=== PATIENT | female | born 1995 | race Caucasian/White ===

== ENCOUNTER 2022-08-14 11:58 | Outpatient (REF) | payer OTHER, SELFPAY ==
--- NOTE | ~2022-08-14 | US_ITS ---
EXAMINATION: US DIAGNOSTIC ULTRASOUND BREAST, RIGHT CLINICAL INFORMATION: 26-year-old with palpable area 1 x 1 cm at clinical exam 12:00 position right breast. No palpable concern noted by patient. No prior breast imaging. COMPARISON: None. TECHNIQUE: Ultrasound of the right breast is targeted to the upper breast using grayscale imaging and color Doppler without and with harmonics. FINDINGS: There is no focal suspicious finding. There is no cystic or solid mass, architectural abnormality, duct ectasia, or edema in the soft tissue planes. Results are discussed with the patient at time of visit. US/US breast RT limited IMPRESSION: Normal study. ASSESSMENT: BI-RADS 1: Negative RECOMMENDATION: -Patient should be managed based on the clinical impression. If there is still clinical palpable concern, further evaluation may be considered with surgical consult. Decision to proceed with biopsy should be based on clinical grounds and degree of clinical concern.
== END 2022-08-14 11:59 | disposition home or self-care (01) ==
LOC: HO.MAMMO 11:58
PROVIDERS: PCP Internal Medicine; Visit Provider Internal Medicine
DX: N63.12 Unspecified lump in the right breast, upper inner quadrant (principal)
CPT/HCPCS: 76642

== ENCOUNTER 2022-09-10 09:05 | Outpatient (REF) | payer OTHER, SELFPAY ==
--- NOTE | ~2022-09-10 | US_ITS ---
EXAMINATION: US DIAGNOSTIC ULTRASOUND BREAST, LEFT CLINICAL INFORMATION: 26-year-old with palpable area noted at routine clinical exam 2:00 position. No palpable concern noted by patient. No discharge. No family history breast cancer. COMPARISON: Contralateral right breast targeted ultrasound 08/14/2022. TECHNIQUE: Ultrasound left breast is targeted to the upper outer quadrant. Grayscale imaging and color Doppler are performed without and with harmonics. FINDINGS: There is no focal suspicious finding. There is no cystic or solid mass, architectural abnormality, duct ectasia, or edema in the soft tissue planes. Results are discussed with the patient at time of visit. US/US breast LT limited IMPRESSION: Normal study. ASSESSMENT: BI-RADS 1: Negative RECOMMENDATION: -Patient should be managed based on the clinical impression. -If there is still clinical concern, further evaluation may be considered with surgical consult.
== END 2022-09-10 09:06 | disposition home or self-care (01) ==
LOC: HO.MAMMO 09:05
PROVIDERS: Visit Provider Internal Medicine
DX: N63.21 Unspecified lump in the left breast, upper outer quadrant (principal)
CPT/HCPCS: 76642

== ENCOUNTER 2022-11-05 11:33 | Outpatient (REF) | payer OTHER, SELFPAY | END 2022-11-05 11:34 | disposition home or self-care (01) | LOC: HO.10HDL 11:33 | PROVIDERS: Visit Provider Internal Medicine | DX: N30.00 Acute cystitis without hematuria (principal); R30.0 Dysuria | CPT/HCPCS: 87086; 87088; 87186 ==

== ENCOUNTER 2025-05-29 19:31 | Emergency (ER) | payer OTHER, SELFPAY ==
[2025-05-29 19:47] VITALS: BP 98/51; PULSE 102; RESP 16; TEMP 36.6; O2SAT 98; BMI 23.6
--- NOTE | 2025-05-29 19:49 | ED_ITS ---
HPI - Abdominal Pain General Chief Complaint: Abdominal Pain Stated Complaint: Stomach Pain Time Seen by Provider: 05/29/25 21:42 Source: patient Mode of arrival: ambulatory Limitations: no limitations History of Present Illness ED Provider: Dr. Banks HPI narrative: This is a 29-year-old female history of Crohn's disease in the past. She has been on Humira in the past. However this was quite some time ago. She does not have a outpatient GI doctor currently. She has been complaining of increased generalized abdominal pain that is migratory in nature. Patient stated that she suspect this is a Crohn flare up. Denies any diarrhea. Denies any bloody bowel movement however does endorse some nausea. Patient has difficulty eating due to the pain. Related Data Previous Rx's ?Medication ?Instructions ?Recorded prednisone 50 mg tablet 50 mg PO DAILY 7 days #7 tab s 05/29/25 Allergies Allergy/AdvReac Type Severity Reaction Status Date / Time No Known Allergies Allergy Verified 05/29/25 19:49 Review of Systems Review of Systems Pertinent review of systems as mentioned in HPI. All other system otherwise negative. [facility] Past Medical History [facility] Narrative: Crohn's disease Social History Social History Advance Directives: No Advance Directives Information Provided: No Do you have a plan to hurt others: No Plan Physical Exam ED Exam Exam: General: Pleasant, no distress, interacting appropriately Head: Normacephalic, atraumatic ENT: oral mucosa moist, neck supple, no tracheal deviation Cardiovascular: regular rate, regular rhythm, no murmurs, rubbing, gallops Respiratory: CTAB, no wheeze, rales, rhonchi Gastrointestinal: Soft, epigastric abdominal tenderness on palpation no guarding Neurological: Awake and alert, no facial droop noted Skin: Warm and dry Psychiatric: Appropriate mood and thoughts Vital Signs: Vital Signs - 24 hr 05/29/25 19:47 Temperature 97.9 F Pulse Rate 102 H Respiratory Rate 16 Blood Pressure 98/51 L Pulse Oximetry 98 Oxygen Delivery Method Room Air BMI result Body Mass Index 23.6 Course Course Course Narrative: Debbie Roche [employer] 05/29/251949 This is rapid medical exam. Deferred additional HPI, ROS, PE to primary provider. 29 yo female with history of crohns (has not seen her GI and been off humira 6yrs) here with abdominal pain, weight loss, feels like she is having a crohns flare. LMP 3 weeks ago. Will obtain labs, UA VSS Medical Decision Making Medical Decision Making MDM Narrative: 29-year-old female history of Crohn's disease presented hospital today for evaluation of generalized abdominal pain. We will plan to give patient some IV Solu-Medrol. IV fluid be given to the patient. She is tachycardic on vital sign. The patient does not appear to be acutely ill on presentation. We will plan to give patient some IV Pepcid. We will plan to also give patient a L IV fluid at this time. I suspect there is a component of dehydration due to her inability to have good p.o. intake. Basic abdominal lab work was obtained on the patient. Unfortunately nursing staff had difficulty time obtain any IV access on patient. Patient will like to defer IV medication and labs at this time. She does feel comfortable with p.o. medication and discharged with a prescription with the p.o. medication. Patient will be given a dose of prednisone here for anticipated Crohn's flare- up. We will plan to discharge patient with a week course of prednisone burst. Referral to Gastroenterology Clinic will be provided the patient. Patient will be discharged home. Differential Diagnosis Differential Diagnoses: The differential diagnosis associated with the presentation includes Crohn's flare up, gastritis, gastroenteritis, colitis Lab Data MDM Lab Attestation statement: I reviewed the patient's lab results. 05/29/25 22:11 05/29/25 22:11 Labs: Lab Results 05/29/25 Range/Units 22:11 WBC 8.2 (4.8-10.8) X10*3/uL RBC 4.02 L (4.20-5.50) X10*6/uL Hgb 11.0 L (12.0-16.0) g/dl Hct 34.5 L (37.0-47.0) % MCV 85.8 (80.0-98.0) fL MCH 27.4 (27.0-33.0) pg MCHC 31.9 (31.0-35.0) g/dl RDW 13.2 (11.0-16.0) % Plt Count 258 (160-400) X10*3/uL MPV 12.0 (9.4-12.3) fL Immature Gran % (Auto) 0.2 (0.0-0.4) % Neut % (Auto) 62.8 (45-73) % Lymph % (Auto) 20.4 (20-40) % [place] % (Auto) 10.0 (2-11) % Eos % (Auto) 6.0 H (0-4) % Baso % (Auto) 0.6 (0-2) % Lymph # (Auto) 1.7 (1.2-4.9) X10*3/uL [place] # (Auto) 0.8 (0.1-1.2) X10*3/uL Eos # (Auto) 0.5 H (0.0-0.4) X10*3/uL Baso # (Auto) 0.1 (0.0-0.2) X10*3/uL Abs Immat Gran (auto) 0.02 (0.00-0.03) X10*3/uL Absolute Neuts (auto) 5.1 (2.0-8.3) x10*3/uL Absolute Nucleated RBC 0.000 (0.0-0.012) X10*3/uL Nucleated RBC % (auto) 0.0 (0.0-0.2) /100WBC Sodium 142 (135-145) mmol/L Potassium 4.1 (3.3-5.1) mmol/L Chloride 106 (96-108) mmol/L Carbon Dioxide 26 (22-29) mmol/L Anion Gap 14 (12-20) BUN 8 L (9-16) mg/dL Creatinine 0.60 (0.5-1.4) mg/dL Estim Creat Clear Calc 104.8 Estimated GFR > 60 Random Glucose 84 (60-115) mg/dL Calcium 9.3 (8.4-10.2) mg/dL Total Bilirubin 0.2 (0.0-1.0) mg/dL Direct Bilirubin < 0.2 (0.0-0.5) mg/dL AST 60 H (5-31) U/L ALT 20 (0-31) U/L Alkaline Phosphatase 91 (39-117) U/L Total Protein 7.5 (6.5-8.0) g/dL Albumin 4.1 (3.5-5.0) g/dL Medications Administered Discontinued Medications Generic Name Dose Route Start Last Admin Trade Name Freq PRN Reason Stop Dose Admin Prednisone 60 mg 05/29/25 23:07 05/29/25 23:12 Prednisone 20 Mg Tablet PO 05/29/25 23:08 60 mg ONCE ONE Administration Discharge Plan Discharge Clinical Impression: Abdominal pain Qualifiers: Abdominal location: generalized Qualified Code(s): R10.84 - Generalized abdominal pain Patient Disposition: Home, Self-Care Prescriptions: New prednisone 50 mg tablet 50 mg PO DAILY 7 Days Qty: 7 0RF Referrals: [facility] [place] [facility] [Provider Group, Gastroenterology] Referral Note: Needs maintenance crohns therapy Clinical Impression: Abdominal pain Print Language: Vietnamese
[2025-05-29 22:17] LABS: MANUAL DIFF FLAG NO
[2025-05-29 22:27] LABS: Hematocrit 34.5 % (37.0-47.0); Hemoglobin 11.0 g/dl (12.0-16.0); Imm Gran Abs Auto 0.02 X10*3/uL (0.00-0.03); Imm Gran Pct Auto 0.2 % (0.0-0.4); Lymphocytes Absolute Auto 1.7 X10*3/uL (1.2-4.9); Mean Corpuscular HGB Conc 31.9 g/dl (31.0-35.0); Mean Corpuscular Hemoglobin 27.4 pg (27.0-33.0); Mean Corpuscular Volume 85.8 fL (80.0-98.0); NRBC Abs Auto 0.000 X10*3/uL (0.0-0.012); NRBC Pct Auto 0.0 /100WBC (0.0-0.2); Platelet Count 258 X10*3/uL (160-400); Red Blood Count 4.02 X10*6/uL (4.20-5.50); White Blood Count 8.2 X10*3/uL (4.8-10.8)
[2025-05-29 22:34] LABS: Alanine Aminotransferase 20 U/L (0-31); Albumin Level 4.1 g/dL (3.5-5.0); Alkaline Phosphatase 91 U/L (39-117); Anion Gap 14 (12-20); Aspartate Amino Transferase 60 U/L (5-31); Blood Urea Nitrogen 8 mg/dL (9-16); Calcium 9.3 mg/dL (8.4-10.2); Carbon Dioxide 26 mmol/L (22-29); Chloride 106 mmol/L (96-108); Creatinine Clr Calc Pharmacy 104.8; Estimated Glomerular Filt Rate > 60; Potassium 4.1 mmol/L (3.3-5.1); Sodium 142 mmol/L (135-145); Total Protein 7.5 g/dL (6.5-8.0)
[2025-05-29 23:54] VITALS: BP 98/51; PULSE 102; RESP 16; TEMP 36.6; O2SAT 98
== END 2025-05-29 23:54 | disposition home or self-care (01) ==
PROVIDERS: Nurse Practitioner Family; Emergency Provider Student in an Organized Health Care Education/Training Program
DX: R10.84 Generalized abdominal pain (principal); K50.90 Crohn's disease, unspecified, without complications
CPT/HCPCS: 36415; 80048; 80076; 85025; 99282; 99283; J1308; J2919

== ENCOUNTER 2025-06-07 13:42 | Outpatient (REF) | payer OTHER, SELFPAY ==
[2025-06-07 13:55] LABS: MANUAL DIFF FLAG NO
[2025-06-07 14:31] LABS: Hematocrit 40.9 % (37.0-47.0); Hemoglobin 12.6 g/dl (12.0-16.0); Imm Gran Abs Auto 0.04 X10*3/uL (0.00-0.03); Imm Gran Pct Auto 0.3 % (0.0-0.4); Lymphocytes Absolute Auto 1.5 X10*3/uL (1.2-4.9); Mean Corpuscular HGB Conc 30.8 g/dl (31.0-35.0); Mean Corpuscular Hemoglobin 26.9 pg (27.0-33.0); Mean Corpuscular Volume 87.2 fL (80.0-98.0); NRBC Abs Auto 0.000 X10*3/uL (0.0-0.012); NRBC Pct Auto 0.0 /100WBC (0.0-0.2); Platelet Count 307 X10*3/uL (160-400); Red Blood Count 4.69 X10*6/uL (4.20-5.50); White Blood Count 12.1 X10*3/uL (4.8-10.8)
[2025-06-07 16:30] LABS: Ferritin 64 ng/mL (10-122)
[2025-06-07 16:43] LABS: Anion Gap 13 (12-20)
[2025-06-07 16:47] LABS: Alanine Aminotransferase 15 U/L (0-31); Albumin Level 4.4 g/dL (3.5-5.0); Alkaline Phosphatase 113 U/L (39-117); Aspartate Amino Transferase 23 U/L (5-31); Blood Urea Nitrogen 10 mg/dL (9-16); Calcium 9.5 mg/dL (8.4-10.2); Carbon Dioxide 25 mmol/L (22-29); Chloride 104 mmol/L (96-108); Estimated Glomerular Filt Rate > 60; Potassium 4.1 mmol/L (3.3-5.1); Sodium 138 mmol/L (135-145); Total Protein 8.4 g/dL (6.5-8.0)
--- OUTSIDE RECORDS SUMMARY | 2025-06-07 18:31 | XMS_ITS | Clinical Summary ---
Author Organization [address] [place] [address] Address [address] [place] [address] Phone Care Team Providers Care Manager Crisis Name Role Phone Conchita Donaldson MD Primary Care Provider [phone] Social History Tobacco Use Types Packs/Day Years Used Date Smoking Tobacco: Never Assessed Comments Unknown Sex and Gender Information Value Date Recorded Sex Assigned at Not on file Legal Sex Female 2:16 AM EST Gender Identity Not on file Sexual Orientation Not on file Plan of Treatment Health Maintenance Due Date Last Done Comments DTaP,Tdap,and Td Vaccines (1 - Tdap) 2016 Hepatitis B Vaccines (1 of 3 - 19+ 3-dose series) 2016 Cervical Cancer Screening: P ap Smear 2018 HIV Screening 06/17/2022 Hepatitis C Screening 06/17/2022 Social Influencers of Health Screening 06/17/2022 Depression Screening 07/15/2024 HPV Vaccines (1 - 3-dose SCD M series) 2024 COVID-19 Vaccine ( - 2024-2 6 season) 2025 Influenza Vaccine (#1) 2025 RSV Immunization Adult Patie nts (1 - 1-dose 75+ series) 2072 HIB Vaccines Aged Out No longer eligi ble based on patient's age to complete this topic Hepatitis A Vaccines Aged Out No long er eligible based on patient's age to complete this topic IPV Vaccines Aged Out No longer eligi ble based on patient's age to complete this topic MMR Vaccines Aged Out No longer eligi ble based on patient's age to complete this topic Meningococcal ACWY Vaccine Aged Out N o longer eligible based on patient's age to complete this topic Meningococcal B Vaccine Aged Out No l onger eligible based on patient's age to complete this topic Pneumococcal Vaccine: Pediat rics (0 to 5 Years) and At-Risk Patients (6 to 49 Years) Aged Out No longer eligible b ased on patient's age to complete this topic RSV Immunization Patients Un pietro 20 months Aged Out No longer eligible b ased on patient's age to complete this topic Varicella Vaccines Aged Out No longer eligible based on patient's age to complete this topic Insurance [place] - [place] [facility] Care Teams Manager Crisis Relationship Specialty Start Date End Date Conchita Donaldson MD [address] [place] [address] [place] [id number] PCP - General Internal Medicine 06/07/25
== END 2025-06-07 13:43 | disposition home or self-care (01) ==
LOC: HO.LAB 13:42
PROVIDERS: PCP Internal Medicine; Visit Provider Internal Medicine
DX: Z00.01 Encounter for general adult medical examination with abnormal findings (principal); K50.80 Crohn's disease of both small and large intestine without complications; R50.9 Fever, unspecified
CPT/HCPCS: 36415; 80053; 82728; 85025